=== PATIENT | male | born 1950 | race Caucasian/White ===

== ENCOUNTER 2025-01-24 17:02 | Emergency (ER) | payer MEDICARE, SELFPAY ==
[2025-01-24] VITALS (24 sets, daily range): BP systolic 140–220; BP diastolic 88–122; PULSE 83–128; RESP 12–30; TEMP 36.4; O2SAT 97–100; BMI 28.2
--- NOTE | 2025-01-24 17:10 | CT_ITS ---
PROCEDURE INFORMATION: Exam: CTA Neck Without And With Contrast Exam date and time: 01/24/2025 6:25 PM Age: 74 years old Clinical indication: Other: Possible stroke TECHNIQUE: Imaging protocol: Computed tomographic angiography of the neck without and with contrast. Exam focused on the cervical segments of the vasculature. 3D rendering (Not supervised by radiologist): MIP and/or 3D reconstructed images were created by the technologist. Radiation optimization: All CT scans at this facility use at least one of these dose optimization techniques: automated exposure control; mA and/or kV adjustment per patient size (includes targeted exams where dose is matched to clinical indication); or iterative reconstruction. Contrast material: ISOVUE; Contrast volume: 80 ml; Contrast route: INTRAVENOUS (IV); COMPARISON: CT CERVICAL SPINE WO CON 01/24/2025 6:17 PM FINDINGS: Tubes, catheters and devices: Endotracheal tube terminates above the evelyn. Esophagogastric tube is subdiaphragmatic. Right common carotid artery: Calcification at the right common carotid bifurcation without hemodynamically significant stenosis. Right internal carotid artery: Calcification proximal right ICA. No hemodynamically significant stenosis. Right external carotid artery: No occlusion or stenosis of the origin. Left common carotid artery: Calcification involving the left common carotid artery greater distally. No hemodynamically significant stenosis. Left internal carotid artery: Calcification and plaquing at the proximal left internal carotid artery. Stenosis measures less than 50%. Left external carotid artery: No occlusion or stenosis of the origin. Right vertebral artery: Calcification of the proximal right vertebral artery. No hemodynamically significant stenosis. Left vertebral artery: No stenosis. No dissection or occlusion. Thyroid: Right thyroid nodule measures 1.7 cm. Soft tissues: Normal. No significant soft tissue swelling. Bones/joints: Degenerative change involving the spine. IMPRESSION: No acute vascular pathology. COMMENTS: Consistent with the [employer]'s Incidental Findings Committee white paper (J Am Lynda Radiol 2015): In patients aged 35 years and older with an incidental thyroid nodule equal to or greater than 1.[address], MRI or extrathyroidal US, further evaluation with dedicated thyroid US is recommended for patients with normal life expectancy and without comorbidities. For smaller nodules without suspicious features, no further evaluation or follow up is recommended. REFERENCES: NASCET CRITERIA. The degree of stenosis in the cervical segment of the internal carotid artery is based on NASCET criteria. Normal is no stenosis. Mild is less than 50% stenosis. Moderate is 50-69% stenosis. Severe is 70% to 99% stenosis. Total occlusion is no detectable patent lumen.
--- NOTE | 2025-01-24 17:10 | CT_ITS ---
PROCEDURE INFORMATION: Exam: CT Head Without Contrast Exam date and time: 01/24/2025 6:14 PM Age: 74 years old Clinical indication: Other: Possible stroke TECHNIQUE: Imaging protocol: Computed tomography of the head without contrast. Radiation optimization: All CT scans at this facility use at least one of these dose optimization techniques: automated exposure control; mA and/or kV adjustment per patient size (includes targeted exams where dose is matched to clinical indication); or iterative reconstruction. COMPARISON: CT HEAD/BRAIN WO CON 01/24/2025 6:14 PM FINDINGS: Tubes, catheters and devices: Endotracheal and esophagogastric tubes are present. Brain: Large volume acute subarachnoid hemorrhage at the basilar cisterns including the posterior fossa. There is extension to bilateral cerebral sulci. No midline shift. Cerebral ventricles: Small volume intraventricular hemorrhage. Moderate obstructive hydrocephalus. Paranasal sinuses: [id number] paranasal sinus disease. Mastoid air cells: Visualized mastoid air cells are well aerated. Bones: Unremarkable. No acute fracture. Soft tissues: Unremarkable. IMPRESSION: 1. Positive for large volume acute subarachnoid hemorrhage. 2. Small volume acute intraventricular hemorrhage. 3. Moderate hydrocephalus.
--- NOTE | 2025-01-24 17:10 | CT_ITS ---
PROCEDURE INFORMATION: Exam: CTA Head Without And With Contrast, Arteriography Exam date and time: 01/24/2025 6:25 PM Age: 74 years old Clinical indication: Other: Possible stroke TECHNIQUE: Imaging protocol: Computed tomographic angiography of the head without and with contrast. Exam focused on the arteries. 3D rendering (Not supervised by radiologist): MIP and/or 3D reconstructed images were created by the technologist. Radiation optimization: All CT scans at this facility use at least one of these dose optimization techniques: automated exposure control; mA and/or kV adjustment per patient size (includes targeted exams where dose is matched to clinical indication); or iterative reconstruction. Contrast material: ISOVUE; Contrast volume: 80 ml; Contrast route: INTRAVENOUS (IV); COMPARISON: CT HEAD/BRAIN WO CON 01/24/2025 6:14 PM FINDINGS: ANTERIOR CIRCULATION: Right internal carotid artery: Calcification involving the right carotid siphon without hemodynamically significant stenosis. Right middle cerebral artery: No occlusion or significant stenosis. No aneurysm. Right anterior cerebral artery: Hypoplastic right FRANC A1 segment. Left internal carotid artery: Calcification involving the left carotid siphon without hemodynamically significant stenosis. Left middle cerebral artery: No occlusion or significant stenosis. No aneurysm. Left anterior cerebral artery: No occlusion or significant stenosis. No aneurysm. POSTERIOR CIRCULATION: Right vertebral artery: No occlusion or significant stenosis. No aneurysm. Left vertebral artery: No occlusion or significant stenosis. No aneurysm. Basilar artery: No occlusion or significant stenosis. No aneurysm. Right posterior cerebral artery: No occlusion or significant stenosis. No aneurysm. Left posterior cerebral artery: origin of the left posterior cerebral artery. There is contrast extravasation and extra-axial hemorrhage at C1-C2 on the right. IMPRESSION: 1. Suspect contrast extravasation involving extra-axial hemorrhage at C1-C2 on the right (series 7 images 288 through 297). 2. No definite aneurysm is visualized. Please note pattern of hemorrhage remains suspicious for aneurysm rupture and further evaluation with catheter directed digital subtraction angiography may be considered. THIS REPORT CONTAINS FINDINGS THAT MAY BE CRITICAL TO PATIENT CARE. The findings were verbally communicated via telephone conference with BRYAN Langston at 6:58 PM EDT on 01/24/2025. The findings were acknowledged and understood.
[2025-01-24] MEDS: ETOMIDATE 40MG/20ML VIAL 30 MG IV (17:14)
[2025-01-24] MEDS: SUCCINYLCHOLINE 20MG/ML 10 ML MDV 100 MG IV (17:15)
--- NOTE | 2025-01-24 17:17 | ECG_ITS ---
APPROVED REPORT Exam: Resting ECG HR:123 bpm ECG Measurements Heart Rate 123 AXES QRSd 99 QRS 70 QT 238 T -49 QTc 311 Conclusion ATRIAL FIBRILLATION WITH RAPID VENTRICULAR RESPONSE ST DEVIATION AND MODERATE T-WAVE ABNORMALITY, CONSIDER ANTERIOR ISCHEMIA [-0.1+ mV T-WAVE IN V3/V4] ABNORMAL ECG UNCONFIRMED REPORT Electronically signed by : HUNTER WYATT, 01/25/2025 00:35:07
--- NOTE | 2025-01-24 17:19 | XR_ITS ---
PROCEDURE INFORMATION: Exam: XR Chest Exam date and time: 01/24/2025 5:20 PM Age: 74 years old Clinical indication: Device placement; Other: Tube placement TECHNIQUE: Imaging protocol: Radiologic exam of the chest. Views: 1 view. COMPARISON: No relevant prior studies available. FINDINGS: Tubes, catheters and devices: Esophagogastric tube terminates at the GE junction. Endotracheal tube terminates 4.1 cm above the evelyn. Lungs: No consolidation. Pleural spaces: Unremarkable. No pleural effusion. No pneumothorax. Heart/Mediastinum: Unremarkable. No cardiomegaly. Vasculature: Elongation of the thoracic aorta with calcification. Bones/joints: Osteopenia. Degenerative change involving the spine. IMPRESSION: 1. Endotracheal tube terminates 4.1 cm above the evelyn. 2. Esophagogastric tube terminates at the GE junction.
[2025-01-24 17:23] LABS: Hematocrit 40.1 % (42.0-52.0); Hemoglobin 13.8 g/dL (14.1-18.0); Immature Granulocytes % 1.0 %; Mean Corpuscular HGB Conc 34.4 g/dL (31.8-35.4); Mean Corpuscular Hemoglobin 30.9 pg (27.0-31.2); Mean Corpuscular Volume 89.9 fl (80-94); Nucleated Red Blood Cells % 0 %; Platelet Count 331 K/mm3 (142-424); Red Blood Count 4.46 M/mm3 (4.60-6.20); Red Cell Distribution Width-SD 41.6 fL
[2025-01-24 17:27] LABS: White Blood Count 31.4 K/mm3 (4.8-10.8)
--- NOTE | 2025-01-24 17:28 | PC.NURSE ---
WBC 31.[address] Cruz notified
--- NOTE | 2025-01-24 17:31 | CT_ITS ---
PROCEDURE INFORMATION: Exam: CTA Chest Without And With Contrast Exam date and time: 01/24/2025 6:28 PM Age: 74 years old Clinical indication: Other: Fall, intubated, unknown mechanism TECHNIQUE: Imaging protocol: Computed tomographic angiography of the chest without and with contrast. Exam focused on the arteries. 3D rendering (Not supervised by radiologist): MIP and/or 3D reconstructed images were created by the technologist. Radiation optimization: All CT scans at this facility use at least one of these dose optimization techniques: automated exposure control; mA and/or kV adjustment per patient size (includes targeted exams where dose is matched to clinical indication); or iterative reconstruction. Contrast material: ISOVUE; Contrast volume: 80 ml; Contrast route: INTRAVENOUS (IV); COMPARISON: CR XR CHEST PORTABLE 01/24/2025 5:20 PM FINDINGS: Tubes, catheters and devices: Endotracheal and esophagogastric tubes in place. Tip of the esophagogastric tube is at the gastroesophageal junction. Endotracheal tube appears to be in good position with the tip approximately 4.5 cm above the evelyn. Pulmonary arteries: Normal. No pulmonary emboli. Aorta: Unremarkable. No aortic aneurysm. No aortic dissection. Lungs: Unremarkable. No consolidation. No masses. Pleural spaces: Unremarkable. No pneumothorax. No pleural effusion. Heart: Unremarkable. No cardiomegaly. No pericardial effusion. Lymph nodes: Unremarkable. No enlarged lymph nodes. Bones/joints: Mild degenerative changes throughout the thoracic spine. No vertebral body compression. No acute fracture. Soft tissues: Unremarkable. IMPRESSION: High position of esophagogastric tube with tip at the GE junction. Advancement approximately 10 cm recommended. Otherwise incidental findings as noted.
--- NOTE | 2025-01-24 17:31 | CT_ITS ---
PROCEDURE INFORMATION: Exam: CT Cervical Spine Without Contrast Exam date and time: 01/24/2025 6:17 PM Age: 74 years old Clinical indication: Injury or trauma; Other: Fall, intubated TECHNIQUE: Imaging protocol: Computed tomography of the cervical spine without contrast. Radiation optimization: All CT scans at this facility use at least one of these dose optimization techniques: automated exposure control; mA and/or kV adjustment per patient size (includes targeted exams where dose is matched to clinical indication); or iterative reconstruction. COMPARISON: CT CERVICAL SPINE WO CON 01/24/2025 6:17 PM FINDINGS: Tubes, catheters and devices: Endotracheal and esophagogastric tubes are present. Bones: Vertebral body height and AP alignment is preserved. [id number] degenerative change about the dens. Mild to moderate prevertebral osteophytosis. Bilateral facet joint degenerative change. No acute cervical spine fracture. Multilevel cervical central and foraminal stenoses. Brain: Intracranial hemorrhage extends to the upper cervical spine. Lungs: Lung apices are normal. Pleural spaces: No visible pneumothorax. Soft tissues: Unremarkable. IMPRESSION: 1. No acute cervical spine fracture. 2. Intracranial extra-axial hemorrhage extends to the upper cervical spine.
--- NOTE | 2025-01-24 17:31 | CT_ITS ---
PROCEDURE INFORMATION: Exam: CT Thoracic Spine Without Contrast Exam date and time: 01/24/2025 6:19 PM Age: 74 years old Clinical indication: Other: Fall, intubated TECHNIQUE: Imaging protocol: Computed tomography of the thoracic spine without contrast. Radiation optimization: All CT scans at this facility use at least one of these dose optimization techniques: automated exposure control; mA and/or kV adjustment per patient size (includes targeted exams where dose is matched to clinical indication); or iterative reconstruction. COMPARISON: CT THORACIC SPINE WO CON 01/24/2025 6:19 PM FINDINGS: Tubes, catheters and devices: Endotracheal and esophagogastric tubes noted Bones/joints: Moderate degenerative disc changes throughout the thoracic spine. Osseous alignment is normal. No vertebral body compression. No acute fracture. Soft tissues: Unremarkable. IMPRESSION: No acute abnormality
--- NOTE | 2025-01-24 17:31 | CT_ITS ---
PROCEDURE INFORMATION: Exam: CT Lumbar Spine Without Contrast Exam date and time: 01/24/2025 6:22 PM Age: 74 years old Clinical indication: Other: Fall, intubated TECHNIQUE: Imaging protocol: Computed tomography of the lumbar spine without contrast. Radiation optimization: All CT scans at this facility use at least one of these dose optimization techniques: automated exposure control; mA and/or kV adjustment per patient size (includes targeted exams where dose is matched to clinical indication); or iterative reconstruction. COMPARISON: CT LUMBAR SPINE WO CON 01/24/2025 6:22 PM FINDINGS: Bones/joints: Osseous alignment is normal. No vertebral body compression. No acute fracture. Lumbar disc spaces are well-maintained. No significant disc bulge or spinal stenosis evident. Moderate multilevel bilateral facet arthropathy throughout the lower lumbar spine. Mild degenerative changes in the bilateral sacroiliac joints. Vasculature: Moderate atherosclerotic calcification throughout the abdominal aorta and iliac arteries. No aneurysm. Soft tissues: Unremarkable. IMPRESSION: No acute abnormality. Chronic findings as noted.
--- NOTE | 2025-01-24 17:31 | CT_ITS ---
PROCEDURE INFORMATION: Exam: CTA Abdomen and Pelvis Without And With Contrast Exam date and time: 01/24/2025 6:28 PM Age: 74 years old Clinical indication: Other: Fall, intubated, unknown mechanism TECHNIQUE: Imaging protocol: Computed tomographic angiography of the abdomen and pelvis without and with contrast. Exam focused on the arteries. 3D rendering (Not supervised by radiologist): MIP and/or 3D reconstructed images were created by the technologist. Radiation optimization: All CT scans at this facility use at least one of these dose optimization techniques: automated exposure control; mA and/or kV adjustment per patient size (includes targeted exams where dose is matched to clinical indication); or iterative reconstruction. Contrast material: ISOVUE; Contrast volume: 80 ml; Contrast route: INTRAVENOUS (IV); COMPARISON: CT LUMBAR SPINE WO CON 01/24/2025 6:22 PM FINDINGS: Aorta: Moderate atherosclerotic calcification in the distal aorta and iliac arteries. No aneurysm or dissection. Celiac and mesenteric arteries: No occlusion or significant stenosis. Renal arteries: No occlusion or significant stenosis. Right iliac arteries: No occlusion or significant stenosis. Left iliac arteries: No occlusion or significant stenosis. Liver: No mass. Gallbladder and biliary ducts: Gallbladder wall appears moderately thickened. No calcified gallstones. No biliary ductal dilation. Pancreas: Unremarkable. No mass. No ductal dilation. Spleen: Unremarkable. No splenomegaly. Adrenal glands: Unremarkable. No mass. Kidneys and ureters: Unremarkable. No solid mass. No hydronephrosis. Stomach and bowel: Significant diverticulosis throughout the distal colon. Mild diverticulosis in the proximal colon. No bowel wall thickening or evidence of bowel obstruction. Appendix: No evidence of appendicitis. Intraperitoneal space: Unremarkable. No free air. No significant fluid collection. Lymph nodes: Unremarkable. No enlarged lymph nodes. Urinary bladder: Cruz catheter is present in the urinary bladder. Bladder appears unremarkable. Reproductive: Unremarkable as visualized. Bones/joints: Moderate bilateral facet arthropathy in the lower lumbar spine. Osseous alignment is normal. No vertebral body compression. No acute fracture. Soft tissues: Unremarkable. IMPRESSION: 1. No acute posttraumatic changes. 2. Moderate diffuse nonspecific gallbladder wall thickening. No evidence of cholelithiasis by CT. Consider correlation with gallbladder ultrasound
[2025-01-24 17:35] LABS: Activated Partial Thrombo Time 28.4 seconds (22.8-30.6); INR 1.31 (0.9-1.1); Prothrombin Time 14.3 seconds (10.1-12.5)
[2025-01-24] MEDS: AMIODARONE HCL 150 MG in DEXTROSE 5 % IN WATER 100 ML 600 MG IV (17:35)
[2025-01-24 17:36] LABS: Alanine Aminotransferase 55 U/L (12-78); Albumin Level 5.0 g/dl (3.5-5.0); Albumin/Globulin Ratio 1.9 (1.1-1.8); Alkaline Phosphatase 117 U/L (38-126); Anion Gap 24.7 mEq/L (5-15); Aspartate Amino Transferase 46 U/L (17-59); Bilirubin,Total 1.2 mg/dl (0.2-1.3); Blood Urea Nitrogen 21 mg/dl (9-20); Calcium 10.1 mg/dl (8.4-10.2); Carbon Dioxide 16 mmol/L (22.0-30.0); Chloride 101 mmol/L (98-107); Cholesterol 125 mg/dl (140-200); Creatinine Clearance Estimated 94 mL/min (50-200); Creatinine,Serum 1.00 mg/dl (0.66-1.25); Estimated Glomerular Filt Rate 73 ml/min (>60); GFR (African American) 89 ML/MIN (>60); Globulin 2.6 g/dL (1.3-3.2); Glucose 257 mg/dl (74-100); HDL Cholesterol 43 mg/dl (40-60); Sodium 139 mmol/L (136-145); Total Protein,Serum 7.6 g/dl (6.3-8.2); Triglycerides 98 mg/dl (30-150)
[2025-01-24 17:39] LABS: Microscopic, Urine URINE MICROSCOPIC (MICROSCOPIC)
[2025-01-24 17:40] LABS: Bilirubin,Urine Negative (Negative); Color,Urine YELLOW (Yellow); Glucose,Urine (UA) 2+ (Negative); Ketones,Urine 2+ (Negative); Leukocyte Esterase,Urine Negative (Negative); PH,Urine 5.5 (5.0-8.5); Protein,Urine 3+ (Negative); Specific Gravity, Urine >= 1.030 (1.005-1.030); Urobilinogen,Urine 0.2 EU/dl (0.2)
[2025-01-24 17:46] LABS: Potassium 2.7 mmoL/L (3.5-5.1)
--- NOTE | 2025-01-24 17:46 | PC.NURSE ---
K+ 2.7, PT NAME AND R/V. DR CEVALLOS NOTIFIED
[2025-01-24 17:47] LABS: Troponin I 0.02 ng/ml (0.00-0.034)
--- NOTE | 2025-01-24 17:54 | PC.NURSE ---
DR CEVALLOS AT BEDSIDE TO UPDATE PT
[2025-01-24 17:55] LABS: Total Cells Counted 100
[2025-01-24 17:56] LABS: Anisocytosis 1+; Macrocytosis 1+; Microcytosis 1+
[2025-01-24 17:57] LABS: Ovalocytes 1+; Poikilocytosis 1+; Tear Drop Cells 1+
--- NOTE | 2025-01-24 18:00 | ED_ITS ---
Discharge Plan Referrals Follow up/Referrals: Provider,Referral, [Primary Care Provider, Medical] - See instructions Clinical Impressions Clinical Impression: Subarachnoid hemorrhage, Endotracheally intubated, Acute encephalopathy, Fall, Elevated lactic acid level, Acute hypokalemia, Non-sustained ventricular tachycardia Stand Alone Forms Stand Alone Forms: Transfer Record - ED Print Language Print Language: Croatian Discharge ED Provider: Tian Cruz Adult HPI General Chief complaint: Altered Mental Status Stated complaint: Strike Time Seen by Provider: 01/24/25 17:03 Mode of Arrival: EMS Source of Information: EMS Description of Symptoms (Recalled from ER Triage Doc. by RN): pt brought to ED for unresponsive. fall approx 5-10 minutes prior to EMS arrival. pt become unresponsive while en route Related Data Allergies Allergy/AdvReac Type Severity Reaction Status Date / Time Unable to Assess Allergy Verified 01/24/25 17:19 [facility] Disclaimer: The information contained in this section may have been updated after the patient was seen, as this information can be updated by other users. Social History Smoking Status: Unknown if ever smoked alcohol intake: former current occupational status: retired Travel in the last 8 weeks?: None ROS Obtained: Yes Systems reviewed as appropriate & no additional complaints except as documented Physical Exam General General appearance: other (See MDM) Respiratory Respiratory exam: Present other (See MDM) Cardiovascular Cardiovascular exam: Present other (See MDM) Neurological Exam Neurological exam: Present other (See MDM) Medical Decision Making Medical Records Medical records reviewed: Yes I reviewed the patient's medical records. Screening: Per USPSTF and CDC recommendations, given the prevalence of disease in our region, it is our hospital?s policy to screen for HIV and viral Hepatitis for all patients aged 18 and over and those with ongoing risk factors. Saturnino Inquiry Pt receiving controlled substance: Yes Saturnino was queried for this patient: No Risks and benefits of using a controlled substance: were not discussed with pt by me Vital Signs: 01/24/25 17:01 01/24/25 17:28 01/24/25 17:30 Temperature 97.6 F Temperature Source Oral Pulse Rate 108 H 128 H Pulse Rate [Left Radial] 114 H Respiratory Rate 28 H 26 H 28 H Blood Pressure 217/122 H 220/121 H Blood Pressure [Right Arm] 188/105 H Blood Pressure Mean [Right Arm] 132 02 Sat by Pulse Oximetry 100 100 100 Oxygen Delivery Method Non-Rebreather Mechanical Ventilation Mechanical Ventilation 01/24/25 17:32 01/24/25 17:36 01/24/25 17:40 Temperature Temperature Source Pulse Rate 122 H 115 H 97 H Pulse Rate [Left Radial] Respiratory Rate 28 H 24 19 Blood Pressure 175/88 H 187/109 H 194/114 H Blood Pressure [Right Arm] Blood Pressure Mean [Right Arm] 02 Sat by Pulse Oximetry 100 100 100 Oxygen Delivery Method Mechanical Ventilation Mechanical Ventilation Mechanical Ventilation 01/24/25 17:45 01/24/25 17:50 01/24/25 17:55 Temperature Temperature Source Pulse Rate 97 H 107 H Pulse Rate [Left Radial] Respiratory Rate 30 H 26 H 30 H Blood Pressure 192/115 H 182/103 H 180/108 H Blood Pressure [Right Arm] Blood Pressure Mean [Right Arm] 02 Sat by Pulse Oximetry 99 99 Oxygen Delivery Method Mechanical Ventilation Mechanical Ventilation Mechanical Ventilation 01/24/25 18:00 01/24/25 18:40 01/24/25 18:45 Temperature Temperature Source Pulse Rate 83 105 H Pulse Rate [Left Radial] Respiratory Rate 28 H 26 H 23 Blood Pressure 171/96 H 162/98 H 153/97 H Blood Pressure [Right Arm] Blood Pressure Mean [Right Arm] 02 Sat by Pulse Oximetry 97 100 Oxygen Delivery Method Mechanical Ventilation Mechanical Ventilation Mechanical Ventilation 01/24/25 18:50 Temperature Temperature Source Pulse Rate Pulse Rate [Left Radial] Respiratory Rate 25 H Blood Pressure 152/97 H Blood Pressure [Right Arm] Blood Pressure Mean [Right Arm] 02 Sat by Pulse Oximetry Oxygen Delivery Method Lab Data Lab Results 01/24/25 17:10: VBG pH 7.36, VBG pCO2 30.8 L, VBG pO2 54.6 H, VBG HCO3 17.0 L, V BG Total CO2 18.0 L, VBG O2 Saturation 88.5 H, VBG Base Excess -7.0 L, VBG Lactic Acid 7.8 H 01/24/25 17:16: WBC 31.4 H*, RBC 4.46 L, Hgb 13.8 L, Hct 40.1 L, MCV 89.9, MCH 30.9, MCHC 34.4, RDW 12.7, Plt Count 331, MPV 10.5 H, Neut % (Auto) 86.0 H, L ymph % (Auto) 9.9 L, [place] % (Auto) 2.3, Eos % (Auto) 0.4, Baso % (Auto) 0.4, N eut # (Auto) 27.0 H, Lymph # (Auto) 3.1, [place] # (Auto) 0.7, Eos # (Auto) 0.1, Baso # (Auto) 0.1, Total Counted 100, Neutrophils % (Manual) 81 H, Lymphocytes % (Manual) 16, Monocytes % (Manual) 3, Platelet Estimate Normal, Poikilocytosis 1+, Anisocytosis 1+, Microcytosis 1+, Macrocytosis 1+, Tear Drop Cells 1+, Ovalocytes 1+, PT 14.3 H, INR 1.31 H, APTT 28.4, Sodium 139, Potassium 2.7 L*, Chloride 101, Carbon Dioxide 16 L, Anion Gap 24.7 H, BUN 21 H, Creatinine 1.00, Estimated Creat Clear 94, Estimated GFR 73, Est GFR ( Amer) 89, Glucose 257 H, Calcium 10.1, Total Bilirubin 1.2, AST 46, ALT 55, Alkaline Phosphatase 117, Total Creatine Kinase 132, Troponin I 0.02, Total Protein 7.6, Albumin 5.0, Globulin 2.6, Albumin/Globulin Ratio 1.9 H, Triglycerides 98, Cholesterol 125 L, LDL Cholesterol Direct 49.37 L, VLDL Cholesterol 20, HDL Cholesterol 43, Cholesterol/HDL Ratio 2.9, Plasma/Serum Alcohol < 10, HCV Ab YADIRA w/Rflx PCR Qn Negative, HIV Ag/Ab Combo Qual Negative 01/24/25 17:28: Urine Color Yellow, Urine Appearance Clear, Urine pH 5.5, Ur Specific [place] >= 1.030, Urine Protein 3+ A, Urine Glucose (UA) 2+, Urine Ketones 2+, Urine Blood 1+ A, Urine Nitrate Negative, Urine Bilirubin Negative, Urine Urobilinogen 0.2, Ur Leukocyte Esterase Negative, Urine RBC Occasional, Urine WBC Occasional, Ur Squamous Epith Cells Occasional, Urine Bacteria Trace, Urine Opiates Screen Negative, Urine Methadone Screen Negative, Ur Barbituates Screen Negative, Ur Phencyclidine Scrn Negative, Ur Amphetamines Screen Negative, Urine Cocaine Screen Negative, U Marijuana (THC) Screen Positive H 01/24/25 19:09: Specimen Source Left radial, O2 % 30, ABG pH 7.39, ABG pCO2 33.4 L, ABG pO2 96.6, ABG HCO3 19.5 L, ABG Total CO2 20.6 L, ABG O2 Saturation 98, A BG Base Excess -5.5 L, Evelio Test Patient unable, Vent Rate 16, Tidal Volume 420, PEEP 5 01/24/25 17:16 01/24/25 17:16 Orders (Tests/Meds): ED MEDICATIONS Generic Name Dose Route Start Last Admin Trade Name Freq PRN Reason Stop Dose Admin Potassium Chloride/Water 100 mls @ 100 mls/hr 01/24/25 18:00 Potassium Chloride 10meq/100ml Ivpb IV 01/24/25 20:59 Q1H TRAVON Nicardipine HCl 25 mg/ Sodium 250 mls @ 50 mls/hr 01/24/25 19:10 Chloride IV 02/23/25 19:09 .Q5H TRAVON Protocol 5 MG/HR Sodium Chloride 10 ml 01/24/25 17:10 Sodium Chloride 0.9% 10ml Flush Syringe IV 02/23/25 17:09 NEEDED PRN Maintain IV Site Sodium Chloride 3 ml 01/24/25 19:10 Sodium Chloride 3% 15ml Neb IH 02/23/25 19:09 ONCE PRN INDUCE SPUTUM COLLECTION Discontinued Medications Generic Name Dose Route Start Last Admin Trade Name Freq PRN Reason Stop Dose Admin Etomidate 30 mg 01/24/25 17:14 01/24/25 17:14 Etomidate 40mg/20ml Vial IV 01/24/25 17:15 30 mg ONCE ONE Administration Amiodarone HCl 150 mg/ 103 mls @ 600 mls/hr 01/24/25 17:27 01/24/25 19:13 Dextrose IV 01/24/25 17:37 Infused ONCE ONE Infusion Calcium Gluconate/Sodium Chloride 2 gm in 100 mls @ 50 mls/hr 01/24/25 17:14 01/24/25 19:16 Calcium Gluconate 2,000mg/100ml Nacl Premix IV 01/24/25 19:13 0 mls/hr ONCE ONE Infusion Iopamidol 160 ml 01/24/25 18:23 01/24/25 18:24 Iopamidol-370 (76%);100ml Bottle IV 01/24/25 18:24 160 ml ONCE ONE Administration Iopamidol 160 ml 01/24/25 18:35 01/24/25 18:36 Iopamidol-370 (76%);100ml Bottle IV 01/24/25 18:36 Not Given ONCE ONE Prothrombin Complex Concent (Human) 0 unit 01/24/25 18:57 01/24/25 19:16 Kcentra 500 Unit Vial IV 01/24/25 18:58 500 unit CONSULT PHARMACY ONE Administration Prothrombin Complex Concent (Human) 2,000 unit 01/24/25 19:15 01/24/25 19:14 Kcentra 1,000 Unit Vial IV 01/24/25 19:16 2,000 unit ONCE ONE Administration Sodium Chloride 10 ml 01/24/25 18:23 01/24/25 18:24 Sodium Chloride 0.9% 10ml Syr (Rad Only) IV 01/24/25 18:24 10 ml ONCE ONE Administration Sodium Chloride 50 ml 01/24/25 18:23 01/24/25 18:24 0.9 % Sodium Chloride 50 Ml Vial IV 01/24/25 18:24 50 ml ONCE ONE Administration Sodium Chloride 100 ml 01/24/25 18:35 01/24/25 18:36 0.9 % Sodium Chloride 50 Ml Vial IV 01/24/25 18:36 Not Given ONCE ONE Sodium Chloride 10 ml 01/24/25 18:35 Sodium Chloride 0.9% 10ml Syr (Rad Only) IV 01/24/25 18:36 ONCE ONE Succinylcholine Chloride 100 mg 01/24/25 17:15 01/24/25 17:15 Succinylcholine 20mg/Ml 10 Ml Mdv IV 01/24/25 17:16 100 mg ONCE ONE Administration ORDERS Category Date Time Status CT angio abd/pel - TRAUMA Stat Cat Scan 01/24/25 17:[address] angio chest PE protocol Stat Cat Scan 01/24/25 17:[address] angio head Stat Cat Scan 01/24/25 17:[address] angio neck Stat Cat Scan 01/24/25 17:[address] cervical spine wo con Stat Cat Scan 01/24/25 17:[address] head/brain wo con Stat Cat Scan 01/24/25 17:[address] lumbar spine wo con Stat Cat Scan 01/24/25 17:[address] thoracic spine wo con Stat Cat Scan 01/24/25 17:31 Completed Chest XR -- portable [XR chest portable] Stat Exams 01/24/25 17:19 Completed Activated Partial Thrombo Time Stat Lab 01/24/25 17:16 Completed CK [Creatine Kinase] Stat Lab 01/24/25 17:16 Completed Complete Blood Count Auto Diff Stat Lab 01/24/25 17:16 Completed Comprehensive Metabolic Panel Stat Lab 01/24/25 17:16 Completed Drug Screen,Urine Stat Lab 01/24/25 17:28 Results Ethyl Alcohol Stat Lab 01/24/25 17:16 Completed HIV Combo Stat Lab 01/24/25 17:16 Completed Hepatitis C Ab Qual. W/ RFX Stat Lab 01/24/25 17:16 Completed Lipid Panel Stat Lab 01/24/25 17:16 Completed Prothrombin Time INR Stat Lab 01/24/25 17:16 Completed Troponin I Q3H Lab 01/24/25 20:15 Ordered Troponin I Q3H Lab 01/24/25 23:15 Ordered Troponin I Stat Lab 01/24/25 17:16 Completed Urinalysis and Microscopic Stat Lab 01/24/25 17:28 Completed Sputum Culture & Gram Stain Stat Micro 01/24/25 19:10 Ordered ABG [Arterial Blood Gas] Stat RT 01/24/25 19:09 Results Venous Blood Gas Routine RT 01/24/25 17:10 Completed ECG Request Stat Y 01/24/25 17:10 Ordered Medical Decision Narrative: In summary, this is a 74-year-old male patient, with past medical history of hypertension, hyperlipidemia, diabetes, who is presenting to the emergency department today for evaluation after a fall. The patient was reportedly at home and began stating to his family that he did not feel well. He walked into the house and subsequently proceeded to syncopized and fall to the ground. The mechanism of this fall was not witnessed and family is unsure of whether he hit his head. The patient is anticoagulated on Xarelto. EMS was called to the scene and on arrival the patient was vomiting and had a GCS of 3. They were unable to place an oropharyngeal airway so nasopharyngeal airway was placed and he was brought here for further evaluation. And route to the hospital the patient had a very unusual rhythm on the monitor and was intermittently going in and out of bigeminy and trigeminy. On arrival to the emergency department he remained at a GCS of 3 and once connected to the monitor we found that he was profoundly hypertensive with a blood pressure of 210/110. He was also tachycardic with a heart rate in the 120s. His baseline rate appeared to be sinus tachycardia and he was having intermittent runs of ventricular tachycardia. I was able to perform a primary survey and found that the patient had bilateral breath sounds and a thready right radial pulse and his airway was intact. He had sonorous respirations and his GCS was 3. At this point we established bilateral ultrasound-guided IV access and administered 30 mg of etomidate and 100 mg of succinylcholine and proceeded with intubation of the patient. We used an 8 oh ET tube and a Mac 3 blade to perform this procedure. Please see procedure note for details Following intubation the patient still had an unusual rhythm on the monitor and we were in the process of obtaining a VBG. Given this unusual rhythm we decided to prophylactically administered 2 g of calcium gluconate in the event that he was hyperkalemic VBG momentarily resulted and showed a potassium of 2.9, and lactate of 7.8. Remainder of VBG was normal with a pH of 7.36, pCO2 of 30.8, and bicarb of 17. He was still intermittently going in and out of ventricular tachycardia so we administered a 150 mg bolus of amiodarone and since that time his rate has now been controlled. We have not initiated an amiodarone drip. Differential diagnosis at this time includes traumatic intracranial hemorrhage, ischemic stroke, large vascular occlusion, cervical spine fracture, lumbar spine fracture, thoracic spine fracture, intrathoracic hemorrhage, intra-abdominal hemorrhage, among others. This could have also been a cardiogenic event such as a intermittent cardiac arrhythmia or acute myocardial infarction that resulted in a fall with subsequent potential underlying traumatic injury. After intubation an EKG was performed and personally interpreted by me. EKG shows atrial fibrillation at a rate of 123 bpm, normal axis, narrow QRS, no QTc prolongation. No ST elevation. There are subtle T wave inversions in leads II, III, and aVF. There is minimal ST depression in leads V2 through V5. I have performed a thorough physical examination and I do not appreciate any scalp lacerations, hematomas, or abrasions. No midface instability or jaw malocclusion. No intraoral lacerations or lesions. He has no external signs of trauma on the anterior chest or anterior abdominal wall. Pelvis is stable. No step-offs of the cervical spine, thoracic spine, or lumbar spine. His lungs have crackles bilaterally consistent with likely aspiration. Labs personally turbid by me demonstrate a leukocytosis of 31.4. No transfusional anemia. Patient's INR is slightly elevated at 1.31. Potassium is low at 2.7. We had ordered potassium chloride to be given through peripheral IV CT scans of the head were personally turbid by me and demonstrate significant subarachnoid hemorrhage with partial effacement of the ventricles. Official radiology read is in agreement and states that there is concern for an aneurysmal bleed with intraventricular extension as well as extension of this bleed into the cervical spine. Patient has experienced hypertension greater than 160 mmHg systolic. At this time I have ordered nicardipine for blood pressure targets between 140 and 160 to prevent complications and cerebral artery vasospasm. I have had an interactive discussion with the volunteer services coordinator at [facility] in [place]. They agree that this is an extensive subarachnoid hemorrhage. They have spoken with her neurosurgeon who is unsure as to whether this is a true aneurysmal bleed. They would like for the patient to be transferred to their facility for urgent EVD placement. We have secured a helicopter ambulance for the patient. He has been transferred in critical condition. Procedures Intubation Mallampati Score:: Class I Time out performed: Yes sedative: Etomidate Mg Given: 30 paralytic: Succinylcholine Mg Given: 100 Laryngoscope: other (Video laryngoscopy, Mac 3 blade) ET Tube Size: 8 ET Tube Uncuffed: No Tube Secured Depth (cm): 24 Tube Secured Location: lips Tube Placement Confirmation: visualized tube passing through cords, equal breath sounds bilaterally, no breath sounds over epigastrium and confirmation by capnometry Patient Tolerated Procedure: well Intubation Complications: none Miscellaneous Procedure Procedure Performed: Limited Ultrasound Indication:: Ultrasound-guided line placement Indication: - Difficult IV access, numerous unsuccessful sticks Identified structures: - Left basilic vein Location/access site: - Left upper extremity Vessel patency: - Patent Direct visualization? - Yes Impression: Successful placement of 20-gauge IV catheter in the left upper extremity median vein CPT Codes: Venipuncture: 01671-62 Age <3 yo: 99721-08 Age >3yo: 33178-89 Central line <5 yo: 97905-56 Central line >5 yo: 61891-39 Limited Ultrasound Indication:: Ultrasound-guided line placement Indication: - Difficult IV access, numerous unsuccessful sticks Identified structures: - Right basilic vein Location/access site: - Right upper extremity Vessel patency: - Patent Direct visualization? - Yes Impression: Successful placement of 20-gauge IV catheter in the left upper extremity median vein CPT Codes: Venipuncture: 12954-79 Age <3 yo: 63212-70 Age >3yo: 87884-95 Central line <5 yo: 86710-28 Central line >5 yo: 62042-75 Critical Care Critical Care Time Critical Care Time: Yes Attestation: On 01/24/25, the high probability of a clinically significant, sudden or life threatening deterioration of the following system(s) required my full and direct attention, intervention and personal management. The time I documented below is in addition to time spent performing reported procedures but includes the following listed in this critical care notation. Total Time Total Critical Care Time: 87
[2025-01-24 18:07] LABS: Creatine Kinase 132 U/L (55-170)
--- NOTE | 2025-01-24 18:17 | PC.NURSE ---
IMAGES POWERSHARED TO [facility]
[2025-01-24 18:18] LABS: RBC,Urine Occasional #/hpf (0-3)
[2025-01-24 18:19] LABS: Bacteria,Urine Trace /lpf; Squamous Epithelial Cell,Urine Occasional #/hpf (0-5); WBC,Urine Occasional #/hpf (0-3)
[2025-01-24] MEDS: SODIUM CHLORIDE 0.9% 10ML SYR (RAD ONLY) 10 ML IV (18:24)
[2025-01-24] MEDS: 0.9 % SODIUM CHLORIDE 50 ML VIAL IV (18:24)
[2025-01-24] MEDS: IOPAMIDOL-370 (76%);100ML BOTTLE 160 ML IV (18:24)
[2025-01-24 18:26] LABS: VBG HCO3 17.0 mmol/L (23-30); VBG PCO2 30.8 mmol/L (35-51); VBG PH 7.36 mmol/L (7.31-7.41); VBG PO2 54.6 mmol/L (28-40)
[2025-01-24 18:27] LABS: Lactate Venous 7.8 mmol/L (0.4-2.0)
--- NOTE | 2025-01-24 18:39 | PC.NURSE ---
calling Nicolasa at this time
--- NOTE | 2025-01-24 18:43 | PC.NURSE ---
on phone with [facility] stroke navigator at this time
--- NOTE | 2025-01-24 18:50 | PC.NURSE ---
1700 arrival to ED 1704 pads placed on pt 1705 nonrebreather placed over nasal trumpet 1707 20 L basilic 1710 20 R basilic 1711 VBG sent with RT 1714 calcium gluconate hung 1714 etomidate 30 pushed 1715 succ 100 pushed 1716 intubated 8.0 tube 24@lip 1726 tubbs cath placed; prop started at 6.6mcg/kg/min 1735 amio pushed 1738 ng tube placed 55 at the nare, right nare 1739 xray at bedside 1735 prop increased to 40 mcg/kg/min [address] with nurse and respiratory 1845 prop increased to 60mcg//kg/min
[2025-01-24 19:01] LABS: Barbiturates Screen,Urine Negative ng/ml (<200)
[2025-01-24 19:02] LABS: Hepatitis C Ab Qual. W/ RFX NEGATIVE (Negative)
[2025-01-24 19:02] LABS: Amphetamine/Metha Screen,Urine Negative ng/ml (<1000)
[2025-01-24 19:04] LABS: Methadone Screen,Urine Negative ng/ml (<300)
[2025-01-24 19:06] LABS: Opiate Screen,Urine Negative ng/ml (<300); Phencyclidine Screen,Urine Negative ng/ml (<25)
[2025-01-24 19:13] LABS: ABG HCO3 19.5 mmhg (22.0-26.0); ABG PCO2 33.4 mmhg (35.0-45.0); ABG PH 7.39 mmol/L (7.35-7.45); ABG PO2 96.6 mmhg (80-100); ABG TCO2 20.6 mmhg (23-27)
[2025-01-24] MEDS: CALCIUM GLUC IN NACL, ISO-OSM 2 GM/100 ML BAG IV (19:13)
[2025-01-24] MEDS: KCENTRA 2000 UNIT IV (19:14)
[2025-01-24 19:15] LABS: PEEP 5
[2025-01-24 19:16] LABS: Source Left Radial
--- NOTE | 2025-01-24 19:29 | PC.NURSE ---
called report to khalif edwards [address] [facility]
[2025-01-24 19:31] LABS: Benzodiazepines Screen,Urine Negative ng/ml (<200)
[2025-01-24 21:14] LABS: Reflex Lactic Add Lactic Reflex
== END 2025-01-24 20:06 | disposition short-term general hospital (02) ==
PROVIDERS: Internal Medicine Pulmonary Disease; Nurse Practitioner; Emergency Provider Student in an Organized Health Care Education/Training Program
DX: S06.6X9A Traumatic subarachnoid hemorrhage with loss of consciousness of unspecified duration, initial encounter (principal); R40.2432 Glasgow coma scale score 3-8, at arrival to emergency department; G91.3 Post-traumatic hydrocephalus, unspecified; G93.49 Other encephalopathy; R74.02 Elevation of levels of lactic acid dehydrogenase [LDH]; E87.6 Hypokalemia; I47.29 Other ventricular tachycardia; D72.829 Elevated white blood cell count, unspecified; I48.91 Unspecified atrial fibrillation; I10 Essential (primary) hypertension; E78.5 Hyperlipidemia, unspecified; Z79.01 Long term (current) use of anticoagulants; W19.XXXA Unspecified fall, initial encounter
CPT/HCPCS: 31500; 36600; 51702; 70450; 70496; 70498; 71045; 71275; 72125; 72128; 72131; 74174; 76942; 80053; 80061; 80307; 80320; 81001; 82550; 82803; 84484; 85007; 85025; 85610; 85730; 86803; 87070; 87077; 87186; 87205; 87389; 93005; 96365; 96366; 96367; 96375; 99285; 99291; J0282; J0330; J0612; J2704; J3480; J7168; Q9967